=== PATIENT | female | born 1980 | race Caucasian/White ===

== ENCOUNTER 2016-04-10 18:48 | Emergency (ER) | payer SELFPAY | END 2016-04-10 20:04 | disposition left against medical advice (07) | LOC: ER 18:48 | DX: Z53.21 Procedure and treatment not carried out due to patient leaving prior to being seen by health care provider (principal) ==

== ENCOUNTER 2016-06-20 20:38 | Emergency (ER) | payer SELFPAY | END 2016-06-20 21:28 | disposition home or self-care (01) | LOC: ER 20:38 | DX: B35.3 Tinea pedis (principal); F17.210 Nicotine dependence, cigarettes, uncomplicated; Z98.51 Tubal ligation status; Z90.721 Acquired absence of ovaries, unilateral; Z90.79 Acquired absence of other genital organ(s); Z88.8 Allergy status to other drugs, medicaments and biological substances ==